=== PATIENT | female | born 1985 | race American Indian/Alaskan Native ===

== ENCOUNTER 2017-03-09 15:19 | Emergency (ER) | payer OTHER ==
[2017-03-09 16:00] VITALS: BP 128/87
[2017-03-09] MEDS ORDERED: NORCO 5/325 PO ONE (16:56)
[2017-03-09] MEDS ORDERED: FLEXERIL PO ONE (16:57)
[2017-03-09] MEDS ORDERED: DELTASONE PO ONE (16:57)
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
== END 2017-03-09 17:28 | disposition home or self-care (01) ==
LOC: ED 15:19
DX: S29.012A Strain of muscle and tendon of back wall of thorax, initial encounter (principal); F12.10 Cannabis abuse, uncomplicated; F17.200 Nicotine dependence, unspecified, uncomplicated; V89.2XXA Person injured in unspecified motor-vehicle accident, traffic, initial encounter; Y93.9 Activity, unspecified; Y92.488 Other paved roadways as the place of occurrence of the external cause; Y99.8 Other external cause status
CPT/HCPCS: 99282; J7512